=== PATIENT | male | born 1990 | race Caucasian/White ===

== ENCOUNTER 2017-05-11 16:21 | Emergency (ER) | payer OTHER ==
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
[2017-05-11] MEDS ORDERED: LIDOCAINE HCL 1%, 10 MG/ML (50 mL VIAL) INF ONE (16:47)
[2017-05-11 17:04] VITALS: TEMP 99.9; BMI 21.2
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
[2017-05-11 17:37] VITALS: BP 124/64; PULSE 116
== END 2017-05-11 18:06 | disposition home or self-care (01) ==
LOC: JER 16:21
PROC: 0JCF0ZZ Extirpation of Matter from Left Upper Arm Subcutaneous Tissue and Fascia, Open Approach (ICD-10-PCS; principal; 2017-05-11)
PROC: 0JCD0ZZ Extirpation of Matter from Right Upper Arm Subcutaneous Tissue and Fascia, Open Approach (ICD-10-PCS; 2017-05-11)
DX: S60.552A Superficial foreign body of left hand, initial encounter (principal); S60.551A Superficial foreign body of right hand, initial encounter; Y35.493A Legal intervention involving other sharp objects, suspect injured, initial encounter; Y93.89 Activity, other specified; Y92.89 Other specified places as the place of occurrence of the external cause; Y99.8 Other external cause status; W45.8XXA Other foreign body or object entering through skin, initial encounter
CPT/HCPCS: 99281-25

== ENCOUNTER 2018-03-30 23:44 | Emergency (ER) | payer OTHER ==
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
[2018-03-31 01:17] VITALS: BP 118/88; PULSE 96; TEMP 98.3; BMI 22.8
== END 2018-03-31 03:38 | disposition home or self-care (01) ==
LOC: FER 23:44
DX: N45.1 Epididymitis (principal); N50.811 Right testicular pain; G89.29 Other chronic pain
CPT/HCPCS: 76870-TC; 99281-25

== ENCOUNTER 2018-04-03 19:32 | Emergency (ER) | payer OTHER ==
[2018-04-03 19:54] VITALS: BP 126/94; PULSE 82; TEMP 98.5; BMI 22.8
--- NOTE | 2018-04-03 20:07 | PDOC ---
History of Present Illness - General Chief Complaint: Pain, Acute Stated Complaint: CHRONIC TESTICULAR PAIN Time Seen by Provider: 04/03/18 19:34 History Source: Patient Exam Limitations: Other (History was a challenge as the mother refused to leave the room and the continually interrupted and provided most of the answers and commentary when the patient would answer.) - History of Present Illness Initial Comments: 04/03/18 20:01 This is a 27-year-old male brought in by his mother for evaluation of testicular pain. He has approximately 10 year history of chronic testicular pain for which she has seen multiple urologists and says that they haven't been able to help him. As per his mother the only thing that helps his pain is opioids. Patient was here 3 days again and given a small prescription for opioids a total of 6 Percocet. In addition to that he had a full workup including urinalysis and ultrasound that did show possible epididymitis for which she was also given a short course of ciprofloxacin. Patient was given referral to a urologist and as per his mother he does have an appointment for of next week. Patient said he has also been to a pain management person for management of his pain but the pain management person did not help him and he has not tried to see anybody else. Patient denies any fevers, chills , nausea, vomiting, diarrhea. Patient denies any other complaints. Patient said that the pain is unchanged times many years now. Patient said he has taken anti- inflammatories in the past without relief. Throughout the evaluation the patient 's mother continually interrupted and demanded that he be given opioids. When I told her that I would not prescribe opioids for his pain as he had already been given opioids and with the current opioid crisis I felt that his complaint did not warrant opioid management. I suggested that if he needed opioids they should, from a pain specialist or at the very least his urologist. I did say I wanted to do a basic workup including a repeat ultrasound to make sure that his symptoms had resolved and there was no other reason for his pain. As soon as I told him I would not give him opioids his mother became very upset and angry and refused any further evaluation told him to get dressed and demanded that he leave the emergency department with her. Patient eloped from the emergency department with his mother. Patient's mother refused to let me do an exam or any further workup. Past History - Past Medical History Allergies/Adverse Reactions: Allergies Allergy/AdvReac Type Severity Reaction Status Date / Time No Known Allergies Allergy Verified 03/30/18 23:47 Home Medications: Ambulatory Orders Amitriptyline HCl [Elavil -] 10 mg PO HS 05/11/17 Olanzapine [Zyprexa] 10 mg PO DAILY 05/11/17 Ciprofloxacin [Cipro -] 500 mg PO Q12H #6 tablet 03/31/18 Oxycodone HCl/Acetaminophen [Percocet 5-325 mg Tablet] 1 tab PO Q6H PRN #6 tablet MDD 3 03/31/18 COPD: No Disorders: Yes (CHRONIC TESTICULAR PAIN) Other medical history: CHRONIC TESTICULAR PAIN - Immunization History Immunization Up to Date: Yes - Suicide/Smoking/Psychosocial Hx Smoking History: Never smoked Have you smoked in the past 12 months: No Information on smoking cessation initiated: No Hx Alcohol Use: No Drug/Substance Use Hx: Yes (WEED DAILY) *Physical Exam - Vital Signs Last Vital Signs Temp Pulse Resp BP Pulse Ox 98.5 F 82 16 126/94 100 04/03/18 19:38 04/03/18 19:38 04/03/18 19:38 04/03/18 19:38 04/03/18 19:38 Moderate Sedation - Procedure Monitoring Vital Signs: Procedure Monitoring Vital Signs Temperature 98.5 F 04/03/18 19:38 Pulse Rate 82 04/03/18 19:38 Respiratory Rate 16 04/03/18 19:38 Blood Pressure 126/94 04/03/18 19:38 O2 Sat by Pulse Oximetry (%) 100 04/03/18 19:38 *DC/Admit/Observation/Transfer Diagnosis at time of Disposition: Chronic pain in testicle - Discharge Dispostion Disposition: ELOPED Condition at time of disposition: Stable - Referrals Referrals: Tiago Churchill MD [Primary Care Provider] - - Patient Instructions - Post Discharge Activity
== END 2018-04-03 20:05 | disposition left against medical advice (07) ==
LOC: FER 19:32
DX: N50.819 Testicular pain, unspecified (principal)
CPT/HCPCS: 99281-25

== ENCOUNTER 2018-05-08 15:41 | Emergency (ER) | payer OTHER ==
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
[2018-05-08 16:20] VITALS: BP 105/74; PULSE 88; BMI 21.2
[2018-05-08] MEDS ORDERED: LORazepam 1 MG TABLET PO ONE (17:27)
[2018-05-08] MEDS ORDERED: LORazepam 0.5 MG TABLET ONE (17:31)
--- NOTE | 2018-05-08 17:34 | PDOC ---
Attending Attestation - Resident Resident Name: Rm Wu - ED Attending Attestation I have performed the following: I have examined & evaluated the patient, The case was reviewed & discussed with the resident, I agree w/resident's findings & plan - HPI HPI: 05/08/18 18:04 27 YOM with chronic testicular pain and anxiety presenting with suicide ideation , stating he wants to take pills to kill himself. Last testicular/scrotal sono 05/05/18 with minimal hydrocele, but no testicular torsion or mass, with good color flow. he has had chronic testicular pain 2/2 varicocelectomy as a teenager no dysuria, hematuria, urgency or frequency, no discharge +subjective chills no AP, n/v/d, cp or sob. 05/08/18 18:04 - Physicial Exam PE: 05/08/18 18:05 NAD, +Suicidal ideation. flat and blunted affect. PERRL, EOMI, nl conjunctiva, anicteric; neck supple. lungs clear, RRR, abdomen soft nontender. BELTRAN x4, no focal neuro deficits. No peripheral edema. normal color for ethnicity, WWP. normal external genitalia, no lesions, normal testicular lie, no scrotal or testicular edema or tenderness. +scarring palpated to right scrotal skin/sac. no hernia. - Medical Decision Making 05/08/18 17:48 hpi as documented VS wnl - no e/o intoxication or toxidrome. tox panel, basic labs and lytes. called to dr huerta for cs, will come to eval in the AM and no ability to get psych beds with weekend timing. pend transfer to the AM given SI on 1:1 safety sit for SI. also baseline chronic testicular pain x many years, recent US ~3 days ago without acute pathology, and normal exam by me and resident. Medical evaluation performed. Exam benign. No e/o trauma, toxic ingestion, electrolyte derangements, infection or primary neurologic abnormality. There is no clinical evidence of intoxication or any acute medical problem requiring immediate intervention. Medically stable from emergency department perspective. Final disposition will be determined by psychiatrist - Dr Huerta. however, at change of shift, pt had eloped, bypassed 1:1 sit, cursed and yelled at staff police called to retrieve patient as he is danger to self/SI and warrants psych eval. pt apparently brought over to [facility], where psych facility available, as pt had already been medically cleared and evaluated here. 05/08/18 18:28 05/11/18 09:39
[2018-05-08 17:36] VITALS: TEMP 99.6
[2018-05-08 18:18] LABS: BASO % 0.4 % (0-2.0); EOS % 0.4 % (0-4.5); HEMATOCRIT 45.3 % (35.4-49); HEMOGLOBIN 14.7 GM/dl (11.7-16.9); LYMPH % 9.5 % (8-40); MCH 27.2 pg (25.7-33.7); MCHC 32.5 g/dl (32.0-35.9); MEAN CELL VOLUME 83.7 fl (80-96); MEAN PLT VOLUME 7.9 fl (7.5-11.1); MONO % 4.7 % (3.8-10.2); PLATELET COUNT 240 K/MM3 (134-434); RBC 5.42 M/mm3 (4.00-5.60); RDW 13.4 % (11.9-15.9); WHITE BLOOD COUNT 9.3 K/mm3 (4.0-10.8)
[2018-05-08 18:24] LABS: INR 1.16 (0.82-1.09); PROTHROMBIN TIME (PATIENT) 12.9 SEC (10.2-13.0)
[2018-05-08 18:38] LABS: ALBUMIN 4.9 g/dl (3.4-5.0); ALK PHOS 46 U/L (45-117); ANION GAP 12 MMOL/L (8-16); BLOOD UREA NITROGEN 14 mg/dl (7-18); CHLORIDE 103 mmol/L (98-107); CO2 23 mmol/L (21-32); CREATININE 0.9 mg/dl (0.55-1.3); GLUCOSE,RANDOM 98 mg/dl (74-106); SGOT/AST 18 U/L (15-37); SGPT/ALT 12 U/L (13-61); SODIUM 138 mmol/L (136-145); TOT PROT 7.8 g/dl (6.4-8.2)
--- NOTE | 2018-05-09 10:38 | EKG ---
Test Reason : Blood Pressure : / mmHG Vent. Rate : 084 BPM Atrial Rate : 084 BPM P-R Int : 162 ms QRS Dur : 090 ms QT Int : 348 ms P-R-T Axes : 059 085 066 degrees QTc Int : 411 ms NORMAL SINUS RHYTHM NORMAL ECG NO PREVIOUS ECGS AVAILABLE Confirmed by JOLENE RECINOS MD ([id number]) on 05/09/2018 10:38:04 AM Referred By: MARY Confirmed By:JOLENE RECINOS MD
== END 2018-05-08 19:10 | disposition left against medical advice (07) ==
LOC: MERGE 15:41 → FER 15:41
DX: R45.851 Suicidal ideations (principal); G89.29 Other chronic pain; N50.819 Testicular pain, unspecified
CPT/HCPCS: 36415; 80053; 80307; 85025; 85610; 93005; 99283-25

== ENCOUNTER 2018-05-10 16:23 | Emergency (ER) | payer OTHER ==
[2018-05-10 16:50] VITALS: BMI 22.8
[2018-05-10] MEDS ORDERED: ACETAMINOPHEN 1000 MG/100 ML VIAL (NON FORMULARY) IVPB ONE (16:52)
--- NOTE | 2018-05-10 16:55 | PDOC ---
History of Present Illness - General Chief Complaint: Pain Stated Complaint: PAIN Time Seen by Provider: 05/10/18 16:50 - History of Present Illness Initial Comments: 05/10/18 18:51 27 year old man with a history of chronic R testicular pain who presents with 10 /10 pain in the R testicle since this AM. The patient normally uses marijuana for pain management and smoked some this morning as well as used ativan and advil. The patient has been seen in this ED multiple times for the same complaint and has had approx 7 scrotal ultrasounds without significant findings. He has a urologist whom he follows with. While in the ED he had 1x emesis 05/10/18 18:53 Past History - Past Medical History Allergies/Adverse Reactions: Allergies Allergy/AdvReac Type Severity Reaction Status Date / Time No Known Allergies Allergy Verified 05/10/18 16:50 Home Medications: Ambulatory Orders Gabapentin 300 mg PO TID 05/05/18 COPD: No Disorders: Yes (CHRONIC TESTICULAR PAIN) - Suicide/Smoking/Psychosocial Hx Smoking History: Never smoked Have you smoked in the past 12 months: No Information on smoking cessation initiated: No Hx Alcohol Use: No Drug/Substance Use Hx: No Substance Use Type: None *Physical Exam - Vital Signs Last Vital Signs Temp Pulse Resp BP Pulse Ox 100.4 F H 101 H 16 134/81 100 05/10/18 16:25 05/10/18 16:25 05/10/18 16:25 05/10/18 16:25 05/10/18 16:25 Moderate Sedation - Procedure Monitoring Vital Signs: Procedure Monitoring Vital Signs Temperature 100.4 F H 05/10/18 16:25 Pulse Rate 101 H 05/10/18 16:25 Respiratory Rate 16 05/10/18 16:25 Blood Pressure 134/81 05/10/18 16:25 O2 Sat by Pulse Oximetry (%) 100 05/10/18 16:25 ED Treatment Course - LABORATORY CBC & Chemistry Diagram: 05/10/18 18:27 05/10/18 18:27 - RADIOLOGY Radiology Studies Ordered: Category Date Time Status SCROTUM AND CONTENTS US [US] Stat Ultrasound 05/10/18 16:52 Ordered *DC/Admit/Observation/Transfer - Referrals Referrals: Tiago Churchill MD [Primary Care Provider] - - Patient Instructions - Post Discharge Activity
--- NOTE | 2018-05-10 16:59 | PDOC ---
Attending Attestation - HPI HPI: 05/10/18 18:46 The patient is a 27 year old male with a significant past medical history of chronic testicular pain who presents to the emergency department with testicular pain. The patient was seen in the ED for similar pain 5 days ago by which he got a negative workup for STDs with a negative US read. The patient has been seen on different occasions for similar complaint. He states the he has and MRI appointment tomorrow. He denies any other symptoms or complaints. Documentation prepared by Inge Nunez, acting as medical recruiter for Ena Santiago MD. <Inge Nunez - Last Filed: 05/10/18 18:46> - Resident Resident Name: Alejandrina Roman - ED Attending Attestation I have performed the following: I have examined & evaluated the patient, The case was reviewed & discussed with the resident, I agree w/resident's findings & plan, Exceptions are as noted - HPI HPI: 05/10/18 16:59 27 yo male p/w chronic testicular pain since having a varicocelectomy as a teenager. He was seen on 05/05/18 for the same complaint and had negative work up for STD 05/10/18 18:23 05/10/18 19:54 - Physicial Exam PE: 05/10/18 19:07 thin anxious 27 yo male p/w chronic testicular pain He has had multiple imaging studies and several negative work ups. He has seen urologist s for this problem also -he has a negative STD work up this month -his primary physician is sending him for an MRI tomorrow and he has an appt with a chest painting and sealing supervisor 05/10/18 19:50 thin ,anxious 27 yo male head ncat neck supple lungs cta b/l cvs [id number] abd no guarding no rebound no testicular swelling ,no erythema ext no edema,no clubbing, no caynosis skin warm and dry neuro axox3,ambulatory psych anxious - Medical Decision Making 05/10/18 19:56 today's testicular US is negative for any mass, negative testicular torsion 05/10/18 20:27 pt to keep prior scheduled appt for further imaging and pain specialist <Ena Santiago - Last Filed: 05/10/18 20:27>
[2018-05-10] MEDS ORDERED: SODIUM CHLORIDE 1,000 ML IV SCH (17:00)
[2018-05-10] MEDS ORDERED: ACETAMINOPHEN INJECTION 100 ML IVPB ONE (17:25)
[2018-05-10] MEDS ORDERED: ONDANSETRON 4 MG/2 ML VIAL IVPUSH ONE (18:25)
[2018-05-10] MEDS ORDERED: ONDANSETRON 4 MG/2 ML VIAL ONE (18:32)
[2018-05-10 18:34] LABS: BASO % 0.3 % (0-2.0); EOS % 0.1 % (0-4.5); HEMATOCRIT 42.2 % (35.4-49); HEMOGLOBIN 15.2 GM/dL (11.7-16.9); LYMPH % 8.1 % (8-40); MCH 29.4 pg (25.7-33.7); MCHC 35.9 g/dl (32.0-35.9); MEAN CELL VOLUME 81.8 fl (80-96); MEAN PLT VOLUME 7.6 fl (7.5-11.1); MONO % 4.2 % (3.8-10.2); NEUT % 87.3 % (42.8-82.8); PLATELET COUNT 239 K/MM3 (134-434); RBC 5.16 M/mm3 (4.00-5.60); RDW 13.9 % (11.9-15.9); WHITE BLOOD COUNT 10.8 K/mm3 (4.0-10.0)
[2018-05-10 19:01] LABS: ALK PHOS 53 U/L (45-117); ANION GAP 7 MMOL/L (8-16); BILIRUBIN,TOTAL 0.5 mg/dL (0.2-1); BLOOD UREA NITROGEN 17 mg/dL (7-18); CALCIUM 9.8 mg/dL (8.5-10.1); CHLORIDE 106 mmol/L (98-107); CO2 28 mmol/L (21-32); CREATININE 1.1 mg/dL (0.55-1.3); GLUCOSE,RANDOM 108 mg/dL (74-106); SGOT/AST 13 U/L (15-37); SGPT/ALT 15 U/L (13-61); SODIUM 141 mmol/L (136-145); TOT PROT 8.2 g/dl (6.4-8.2)
--- NOTE | 2018-05-10 19:01 | PDOC ---
*Physical Exam - Vital Signs Last Vital Signs Temp Pulse Resp BP Pulse Ox 100.4 F H 101 H 16 134/81 100 05/10/18 16:25 05/10/18 16:25 05/10/18 16:25 05/10/18 16:25 05/10/18 16:25 - Physical Exam General Appearance: Yes: Nourished, Thin HEENT: positive: Normal Voice, Hearing Grossly Normal Neck: positive: Trachea midline, Supple Respiratory/Chest: positive: Lungs Clear, Normal Breath Sounds Gastrointestinal/Abdominal: positive: Normal Bowel Sounds, Soft Male Genitalia: positive: normal genitalia. negative: testicular tenderness, epididymus tender Extremity: positive: Normal Capillary Refill, Normal Inspection Integumentary: positive: Normal Color, Dry, Warm Neurologic: positive: Fully Oriented, Alert ED Treatment Course - LABORATORY CBC & Chemistry Diagram: 05/10/18 18:27 05/10/18 18:27 - ADDITIONAL ORDERS Additional order review: 05/10/18 18:27 RBC 5.16 MCV 81.8 MCHC 35.9 RDW 13.9 MPV 7.6 Neutrophils % 87.3 H Lymphocytes % 8.1 Monocytes % 4.2 Eosinophils % 0.1 Basophils % 0.3 Medical Decision Making - Medical Decision Making 05/10/18 19:06 Patient signed out by Dr. Roman (Resident) under the care of Dr. Santiago ( Attending) 27 year old male with scrotal pain. Febrile (100.4), other VS unremarkable. H/ o multiple evaluations, most recently 05/08/18 for similar pain at our ED. H/o varicolectomy as teenager. Also evaluation yesterday at [facility] for similar pain with negative U/S. S/p Tylenol. Testicular U/S pending to r/o torsion/mass. 05/10/18 19:07 Will give Toradol for pain control 05/10/18 20:06 Testicular U/S negative for torsion/mass Patient reassessed @ bedside VSS, now afebrile Continues to c/o pain. Mother and patient separately request Percocet until patient is able to be evaluated by pain management. Counseled that he requires alf pain management. Appointment w/pain specialist scheduled for next Wednesday (05/17/18) patient advised to seek earlier appointment and given additional referral to another pain management doctor. Counseled to keep spinal MRI appointment previously scheduled for tomorrow. Patient discharged home with mother, pain referral and return precautions. Clinical Impression: Testicular pain, Viral Syndrome I discussed the physical exam findings, ancillary test results and final diagnoses with the patient. I answered all of the patient's questions. The patient was satisfied with the care received and felt comfortable with the discharge plan and treatment plan. The patient will return to the Emergency Department with any new, persistent or worsening symptoms. *DC/Admit/Observation/Transfer Diagnosis at time of Disposition: Testicular pain - Discharge Dispostion Disposition: HOME Condition at time of disposition: Good Decision to Admit order: No - Referrals Referrals: Tiago Churchill MD [Primary Care Provider] - Dakota Araujo MD [Staff Physician] - - Patient Instructions Additional Instructions: Your testicular ultrasound as well as a test of your urine showed no concerning findings. At this time you are safe for discharge home. Monitor your temperature and take Tylenol (up to 4000 mg daily) alternating with Motrin (up to 3200 mg daily) for fevers and for pain. At this time you are safe for discharge home. Please keep your previously scheduled appointment for an MRI tomorrow. We have provided a referral to a pain specialist for further evaluation of your pain. Return to the Emergency Department for any new/worsening/concerning symptoms. - Post Discharge Activity
[2018-05-10] MEDS ORDERED: KETOROLAC TROMETHAMINE 30 MG/1 ML VIAL IVPUSH ONE (20:06)
[2018-05-10] MEDS ORDERED: KETOROLAC TROMETHAMINE 30 MG/1 ML VIAL ONE ×2 (20:24→20:45)
[2018-05-10] MEDS ORDERED: KETOROLAC TROMETHAMINE 30 MG/1 ML VIAL IM ONE (20:43)
[2018-05-10 21:01] VITALS: BP 110/81; PULSE 93; TEMP 98.9
[2018-05-10 21:04] LABS: URINE APPEARANCE CLEAR; URINE BILIRUBIN NEGATIVE (<2.0 mg/dL); URINE COLOR LTYELLOW; URINE GLUCOSE (UA) NEGATIVE (NEGATIVE); URINE KETONE 1+ (NEGATIVE); URINE LEUK ESTERASE NEGATIVE (NEGATIVE); URINE NITRITE NEGATIVE (NEGATIVE); URINE PROTEIN 1+ (NEGATIVE); URINE UROBILINOGEN NEGATIVE mg/dL (0.2-1.0)
[2018-05-10 21:09] LABS: COCAINE, UR NEGATIVE ng/ml (CUTOFF=300); METHADONE, UR NEGATIVE ng/ml (CUTOFF=300); OPIATES, URI NEGATIVE ng/ml (CUTOFF=300); PHENCYCLIDINE,URINE NEGATIVE ng/ml (CUTOFF=25); URINE BARBITURATES NEGATIVE ng/ml (CUTOFF=200); URINE BENZODIAZEPINES NEGATIVE ng/ml (CUTOFF=200)
[2018-05-10 21:10] LABS: URINE AMPHETAMINES NEGATIVE ng/ml (CUTOFF=500)
[2018-05-10 21:48] LABS: URINE MUCUS RARE
== END 2018-05-10 21:48 | disposition home or self-care (01) ==
LOC: JER 16:23 → MERGE 16:23 → JER 21:48
PROC: 3E0233Z Introduction of Anti-inflammatory into Muscle, Percutaneous Approach (ICD-10-PCS; principal; 2018-05-10)
PROC: 3E033GC Introduction of Other Therapeutic Substance into Peripheral Vein, Percutaneous Approach (ICD-10-PCS; 2018-05-10)
PROC: 3E033GC Introduction of Other Therapeutic Substance into Peripheral Vein, Percutaneous Approach (ICD-10-PCS; 2018-05-10)
DX: N50.811 Right testicular pain (principal); G89.29 Other chronic pain
CPT/HCPCS: 36415; 76870-TC; 80053; 80307; 81003; 81015; 85025; 87086; 96372; 96374; 96375; 99282-25; J0131; J7030